=== PATIENT | male | born 1960 | race Caucasian/White ===

== ENCOUNTER 2022-09-21 03:49 | Day surgery (SDC) | payer OTHER ==
[2022-09-18 17:09] VITALS: BMI 35.4
[2022-09-21] MEDS ORDERED: MIDAZOLAM HCL 2 MG/2 ML SINGLE DOSE VIAL ONE (11:33)
[2022-09-21] MEDS ORDERED: PROPOFOL 20 ML ONE (11:48)
[2022-09-21 12:32] VITALS: RESP 16
[2022-09-21 12:53] VITALS: PULSE 60; TEMP 98
[2022-09-21 14:09] VITALS: BP 140/86
== END 2022-09-21 12:50 | disposition home or self-care (01) ==
LOC: JASU-SURG 03:49
PROVIDERS: ATTEND Urology
PROC: 0TF4XZZ Fragmentation in Left Kidney Pelvis, External Approach (ICD-10-PCS; principal; 2022-09-21 11:00)
DX: N20.0 Calculus of kidney (principal)